=== PATIENT | male | born 1995 | race Caucasian/White ===

== ENCOUNTER 2018-06-08 05:38 | Day surgery (SDC) | payer OTHER ==
[~2018-06-08] VITALS: Ht 172.7 cm; Wt 81.4 kg
[2018-06-08] MEDS ORDERED: MORPHINE 2 MG/ML 1ML SYRINGE (J2270) IV PRN (06:30)
[2018-06-08] MEDS ORDERED: ONDANSETRON 4MG/2ML VIAL (J2405) IV ONE (06:30)
[2018-06-08] MEDS ORDERED: PROPOFOL 200 MG/20 ML VIAL As Ordered ONE (08:46)
[2018-06-08] MEDS ORDERED: MIDAZOLAM INJ 2 MG/2 ML VIAL (J2250) As Ordered ONE (08:46)
[2018-06-08] MEDS ORDERED: dexameTHASONE 4 MG/ML 1ML VIAL (J1100) As Ordered ONE (08:46)
[2018-06-08] MEDS ORDERED: LIDOCAINE 2% INJ 100 MG/5 ML SDV (FOR ANES.) As Ordered ONE (08:46)
[2018-06-08] MEDS ORDERED: ONDANSETRON 4MG/2ML VIAL (J2405) As Ordered ONE (08:46)
[2018-06-08] MEDS ORDERED: fentaNYL 100 MCG/2 ML INJECTION (J3010) As Ordered ONE (08:46)
--- NOTE | 2018-06-08 09:01 | REP ---
Clinical: Foreign body. Technique: AP and lateral views of the pelvis. Findings: The osseous structures are intact and normal. The bowel gas pattern is nonspecific. An elongated translucent rectal foreign body is vaguely suggested and requires correlation. Impression: AP view suggests a vague elongated somewhat translucent foreign body within the rectum and correlation is required. Electronically Signed by Pedrito Rosario MD 06/08/2018 08:53 A
[2018-06-08] MEDS ORDERED: LR 1,000 ML IV SCH (09:15)
[2018-06-08] MEDS ORDERED: METOCLOPRAMIDE INJ 10MG/2ML VIAL (J2765) IV PRN (09:15)
[2018-06-08] MEDS ORDERED: fentaNYL 100 MCG/2 ML INJECTION (J3010) IV PRN (09:15)
[2018-06-08] MEDS ORDERED: ONDANSETRON 4MG/2ML VIAL (J2405) IV PRN (09:15)
[2018-06-08] MEDS ORDERED: PERCOCET 5MG/325MG TAB PO PRN (09:15)
[2018-06-08 09:20] VITALS: BP 112/62
--- NOTE | 2018-06-08 13:48 | HPE ---
DATE OF ADMISSION: 06/08/2018 CHIEF COMPLAINT: Rectal foreign body. HISTORY OF PRESENT ILLNESS: Patient is a 23-year-old male who presents to the emergency room with a "butt plug" in that has been present for a little over three hours. He attempted removal on his own. After being unsuccessful, he came into the emergency room for evaluation. The emergency room (ER) did x-rays and then called me. They did not attempt any removal themselves. Plan was to take him straight to the operating room for removal. PAST MEDICAL HISTORY: Negative. PAST SURGICAL HISTORY: 1. [place] teeth removal. 2. Shoulder surgery. ALLERGIES: None. HOME MEDICATIONS: None. SOCIAL HISTORY: Smokes a pack a day. Denies drug, alcohol abuse. FAMILY HISTORY: Noncontributory. REVIEW OF SYSTEMS: As per positives and negatives in history of present illness (HPI). PHYSICAL EXAMINATION: GENERAL: Alert and oriented times three, in no acute distress. VITAL SIGNS: Stable, afebrile. HEENT: Pupils equally round and react to light and accommodation. HEART: S1, S2. Regular rate and rhythm. LUNGS: Clear to auscultation bilaterally. ABDOMEN: Soft, nontender, nondistended. EXTREMITIES: No clubbing, cyanosis or edema. IMAGING STUDIES: Abdominal x-ray was obtained and did not show any signs of perforation of the abdomen, but it did show the foreign body in the rectum. ASSESSMENT: Patient is a 23-year-old male with a rectal foreign body. PLAN: Take him straight to the operating room for removal and then he will be discharged home soon afterwards.
--- NOTE | 2018-06-11 11:15 | RO ---
DATE OF PROCEDURE: 06/08/2018 PREOPERATIVE DIAGNOSIS: Rectal foreign body. POSTOPERATIVE DIAGNOSIS: Rectal foreign body. PROCEDURE: Exam under anesthesia with removal of rectal foreign body. SURGEON: Dr. Mohit Mena. SENSOR TECHNICIAN: None. ANESTHESIA: Monitored anesthesia care (MAC). COMPLICATIONS: None. INDICATIONS FOR PROCEDURE: Patient is 23-year-old male presents with rectal foreign body. Recommendation to proceed with exam under anesthesia and possible laparotomy for removal. Risks, benefits procedure not limited but including bleeding, infection, hernia formation, damage to surrounding structure, need for further surgery were discussed in detail. The patient informed was obtained, procedure was planned. DESCRIPTION OF PROCEDURE: The patient brought back to operating room 2. He was placed in lithotomy position after sufficient sedation. A rectal exam was done with just a small amount lubrication. I was able to easily feel the foreign body. I was able to get a finger around it and remove it with just a distal rectal exam. Once it was removed, it was measured 10 cm in length, 5 cm in width. The patient was then awakened from anesthesia, sent to postanesthesia care unit (PACU) in stable condition. Plan is to discharge straight home.
== END 2018-06-08 09:30 | disposition home or self-care (01) ==
LOC: M ED 05:38 → M SDC 06:45
PROVIDERS: ATTEND Surgery
DX: T18.5XXA Foreign body in anus and rectum, initial encounter (principal); F17.210 Nicotine dependence, cigarettes, uncomplicated; Y92.009 Unspecified place in unspecified non-institutional (private) residence as the place of occurrence of the external cause
CPT/HCPCS: 45915; 74018; 99284; J1100; J2250; J2270; J2405; J3010